=== PATIENT | female | born 1980 | race Caucasian/White ===

== ENCOUNTER 2019-09-12 20:50 | Emergency (ER) | payer OTHER, SELFPAY ==
--- NOTE | ~2019-09-12 | XR_ITS ---
EXAMINATION: XR chest port-a-cath/central EXAM DATE: 09/13/2019 06:06 INDICATION: Central line placement. TECHNIQUE: Portable AP frontal chest x-ray was obtained. Comparison is made to prior examination from 09/13/2019, earlier same date. FINDINGS: There is a new right-sided IJ central venous line. No evidence of postprocedure pneumothora x. No focal airspace disease or pleural effusion. Cardiomediastinal silhouette is normal. There are n o osseous abnormalities identified. There is no significant interval change. IMPRESSION: No postprocedure pneumothorax. Reviewed, dictated and finalized at location A.
--- NOTE | ~2019-09-12 | XR_ITS ---
EXAMINATION: XR chest 2V EXAM DATE: 09/13/2019 01:08 INDICATION: Fever cough and weakness. TECHNIQUE: Portable AP frontal chest x-ray was obtained. There is no prior study for comparison. FINDINGS: The lungs are clear. There are no pleural effusions. The cardiomediastinal silhouette is within normal limits. There is no pneumothorax suspected. The bones and soft tissues are unremarkab le. IMPRESSION: No acute cardiopulmonary findings. Reviewed, dictated and finalized at location A.
--- NOTE | ~2019-09-12 | CT_ITS ---
EXAMINATION: CT abdomen pelvis w con EXAM DATE: 09/13/2019 01:01 INDICATION: Nausea vomiting diarrhea, weakness. TECHNIQUE: Spiral CT of the abdomen and pelvis was performed following intravenous injection of 100 m L Omnipaque 350. Axial, coronal and sagittal images were reviewed. The dose-length product (DLP) fo r this examination was 182.74 mGy-cm. The exposure was tailored according to patient size (auto mA e xposure control), and iterative reconstruction (ASIR) was used as additional dose reduction technique . There is no prior study for comparison. FINDINGS: There are significantly enlarged retroperitoneal lymph nodes. For example one below the lef t renal vein measures 2.6 x 2.0 cm. These are relatively low, heterogeneous density. Differential amberly gnosis includes lymphoma, other malignancy, granulomatous process. There is severe periportal edema. Edema also involving the gallbladder wall which is collapsed. No c alcified cholelithiasis or pericholecystic fluid. Portal and splenic veins are patent. Kidneys enha nce symmetrically. There is no hydronephrosis. The uterus is anteverted and morphologically normal . The bladder is unremarkable. The appendix is normal. The stomach and small bowel are unremarkable. There is expected amount of c olonic stool. No free intraperitoneal gas. The heart is normal in size. There are no pericardial or pleural effusions. The lung bases are unremarkable. There are no osteoblastic or osteolytic les ions identified. IMPRESSION: 1. Significantly enlarged heterogeneously low density retroperitoneal lymph nodes; differential diag nosis including lymphoma, metastatic disease, granuloma this process. Clinical correlation, consider retroperitoneal lymph node biopsy. 2. Severe periportal edema also likely causing gallbladder wall edema. Reviewed, dictated and finalized at location A. IMPRESSION: 1. Significantly enlarged heterogeneously low density retroperitoneal lymph no yony; differential diagnosis including lymphoma, metastatic disease, granuloma t his process. Clinical correlation, consider retroperitoneal lymph node biopsy. 2. Severe periportal edema also likely causing gallbladder wall edema.
[2019-09-12 21:23] VITALS: BP 80/53; PULSE 117; RESP 18; TEMP 37.1; O2SAT 100
[2019-09-12 21:55] LABS: Hematocrit 26.1 % (37.0-47.0); Hemoglobin 8.7 g/dL (12.0-15.0); Mean Corpuscular HGB Conc 33.3 g/dl (32-36); Mean Corpuscular Volume 78.1 fl (80-100); Mean Platelet Volume 12.3 fl (7.4-10.4); Platelet Count Result 102 k/mm3 (150-375); Red Blood Count 3.34 M/mm3 (4.2-5.4)
[2019-09-12 22:05] LABS: White Blood Count 1.5 K/mm3 (4.5-10.0)
[2019-09-12 22:06] LABS: Alanine Aminotransferase 47 U/L (4-35); Albumin Level 2.9 g/dL (3.5-5.1); Alkaline Phosphatase 118 U/L (38-126); Aspartate Amino Transferase 86 U/L (14-36); Bilirubin,Total 0.6 mg/dL (0.2-1.3); Blood Urea Nitrogen 16 mg/dL (7-17); Calcium 8.3 mg/dL (8.4-10.2); Carbon Dioxide 25 mmol/L (22-30); Chloride 98 mmol/L (98-107); Estimated CRCL calculation 46 ml/min; Estimated Glomerular Filt Rate > 60; Glucose 110 mg/dL (65-105); Lipase 41 U/L (23-300); Sodium 130 mmol/L (137-145)
[2019-09-12 22:16] LABS: Total Cells Counted 25
[2019-09-12 22:17] LABS: Band Neutrophils Percent 8 % (0-6); Lymphocytes Absolute Manual 0.18 K/mm3 (1.1-4.5); Lymphocytes Percent Manual 12 % (18-44); Monocytes Absolute Manual 0.06 K/mm3 (0.1-0.90); Monocytes Percent Manual 4 % (3-9); Neutrophils Absolute Manual 1.26 K/mm3 (1.7-7.2); Neutrophils Percent Manual 76 % (46-73); Platelet Estimate Decreased (Adequate)
[2019-09-12 22:18] LABS: Ovalocytes 2+ (NORMAL); Poikilocytosis 2+ (NORMAL)
[2019-09-12 23:33] VITALS: BP 74/57; PULSE 88
[2019-09-12 23:36] VITALS: BP 77/55; BP 78/57; PULSE 100; PULSE 94
--- NOTE | 2019-09-12 23:41 | PC.NURSE ---
pt blood pressure 77/55. denies dizziness. states my blood pressure always runs really low. pt states emesis > [address] gonzalez notified. vrbo 1 L NS bolus x1. pt tolerated well. will continue to monitor
[2019-09-12 23:42] VITALS: BP 77/55; PULSE 85; RESP 20; O2SAT 96
[2019-09-12] MEDS: SODIUM CHLORIDE 0.9% IV 1,000 ML 1000 ML (23:50)
[2019-09-13] VITALS (64 sets, daily range): BP systolic 77–102; BP diastolic 44–82; PULSE 76–129; RESP 16–37; TEMP 36.8–39.5; O2SAT 88–100
--- NOTE | 2019-09-13 00:05 | ECG_ITS ---
Measurements Intervals [place] Rate: 94 P: 64 TN: 184 QRS: 43 QRSD: 93 T: 53 QT: 372 QTc: 466 Interpretive Statements SINUS RHYTHM BASELINE ARTIFACT- I, II, III, AVR, AVL, AVF, V1-V6 BORDERLINE ECG Electronically Signed On 09-13-2019 6:56:49 CDT by Casey Doran D.O.
--- NOTE | 2019-09-13 00:06 | ED.NAVMDI ---
HPI - Nausea/Vomiting/Diarrhea General Chief complaint: Nausea/Vomiting/Diarrhea Stated complaint: n/v, fever, cough Time Seen by Provider: 09/13/19 00:04 Source: patient Mode of arrival: ambulatory Limitations: no limitations History of Present Illness HPI Narrative: Patient is a 38-year-old female with a history of HIV who presents for evaluation of fever, nausea and vomiting. Patient reports she has been feeling unwell over the past 3 days since discharge from [facility]. When I question the patient why she was admitted to the hospital immediately she cannot really give me a clear diagnosis or answer. Patient reports cough, congestion, fever, chills, myalgias and vomiting. She denies abdominal pain. No current shortness of breath. Patient denies current IV drug use. She does follow with infectious disease at [facility]. Patient reports some intermittent diarrhea, none today. No passing out, patient states she feels weak and lightheaded. Related Data Allergies Allergy/AdvReac Type Severity Reaction Status Date / Time No Known Allergies Allergy Verified 09/12/19 23:31 Review of Systems Review of Systems: Narrative: CONSTITUTIONAL: Reports fever CARDIOVASCULAR: Denies chest pain RESPIRATORY: Reports cough without shortness of breath GASTROINTESTINAL: Denies abdominal pain, reports nausea and vomiting SKIN: Denies rash : Reports hematuria or dysuria MUSCULOSKELETAL: Denies back pain NEUROLOGIC: Denies headache, reports weakness PMFSH Past Medical History Medical History HIV (human immunodeficiency virus infection) Social History Social History (Updated 09/13/19 @ 00:23 by Valerie Sneed MD) Smoking status: Current every day smoker Tobacco type: cigarettes Alcohol intake: never Substance use: former Gender identity (if verbalized by the patient): Female Exam Narrative: Exam Narrative: GENERAL: Awake, alert, conversant, emaciated HEAD: Normocephalic, atraumatic. EYES: PERRLA and EOMI. ENT: Nares clear, no rhinorrhea or epistaxis. Mucous membranes dry NECK: Supple. CHEST: No respiratory distress, breathing even and non labored HEART: Tachycardic rate, sinus rhythm ABDOMEN: Scaphoid, non distended, non tender EXTREMITIES: Normal range of motion. No edema. SKIN: Warm, dry, no rash. NEURO:No focal deficits. Alert and oriented x3 Course Vital Signs Vital signs: Vital Signs Temperature 37.1 C 09/12/19 21:23 Pulse Rate 117 H 09/12/19 21:23 Respiratory Rate 18 09/12/19 21:23 Blood Pressure 80/53 L 09/12/19 21:23 Pulse Oximetry 100 09/12/19 21:23 Temperature 39.5 C H 09/13/19 04:42 Pulse Rate 123 H 09/13/19 04:42 Respiratory Rate 20 09/13/19 04:42 Blood Pressure 82/55 L 09/13/19 04:42 Pulse Oximetry 95 09/13/19 04:42 Transfer Transfered to: [facility]: ALS Transfer rationale: ICU bed available Accepting physician: Saurabh MAN Procedures Central Line Placement Right IJ: Central Line Date: 09/13/19 Central Line Time: 05:30 Discussed w/ the patient/family/POA,the placement of a central venous catheter, including its clinical necessity/indication & associated potential risks, benifits and alternatives.: Yes The patient/family/POA understand(s) and acknowledge(s) the need to proceed with central venous catheter insertion as an important element of the patient's clinical management.: Yes Time Out Performed: Yes Patient Placed on Monitor/Pulse Ox: Yes Max. Sterile Barrier Technique: Caps, large sterile sheet and hand hygiene Central Line Prep: 2% chlorhexidine scrub and sterile drapes applied Technique: US-Guided Local Anesthetic: lidocaine 1% Amount of anesthesia used (mL): 3 Ultrasound Used for Placement: Yes Central Line Lumen Inserted: triple Post Procedure: sutured in place, good blood re
[2019-09-13 00:33] LABS: CRP 4.3 mg/dL (<1.0); Prothrombin Time 12.8 Seconds (11.1-14.7)
[2019-09-13 00:34] LABS: Partial Thromboplastin Time 36.6 SECONDS (22.3-36.8)
[2019-09-13 00:41] LABS: Add Urine Microscopic? YES; Appearance Urine Clear (Clear); Bilirubin Urine Negative (Negative); Blood Urine Negative (Negative); Color Urine Yellow (Yellow); Glucose Urine UA Negative (Negative); Ketones Urine Negative (Negative); Leukocyte Esterase Ur Negative LEU/UL (Negative); Mucus Urine Rare /lpf; Nitrate Urine Negative (Negative); Protein Urine 2+ mg/dL (Negative); RBC Urine 0-2 /hpf (0-2); Specific Grav Ur 1.028 (1.001-1.035); Squamous Epithelial Cell Urine Moderate /hpf (Few); WBC Urine 0-3 /hpf
[2019-09-13 00:42] LABS: Troponin I < 0.012 ng/mL (0.000-0.034)
[2019-09-13 00:44] LABS: Lactic Acid Reflex 0.9 mmol/L (0.7-2.1)
[2019-09-13] MEDS: ONDANSETRON INJ 4 MG/2 ML VIAL IV PUSH (01:09)
[2019-09-13 03:46] LABS: NT Pro B Type Natriuretic Pept 229 PG/ML (5-100)
[2019-09-13] MEDS: METOCLOPRAMIDE HCL INJ 10 MG/2 ML VIAL IV PUSH (04:51)
--- NOTE | 2019-09-13 04:57 | PC.NURSE ---
Scott Correa @ [facility]., called and stated he has spoken with Matthew Martines, ST[facility], Dr. Wiley (Special Machine Operator) and ER physician. All indicated that they do not accept this patient.
--- NOTE | 2019-09-13 06:20 | PC.NURSE ---
BED RECEIVED FROM [facility] 9. REPORT TO BE CALLED TO [phone].
--- NOTE | 2019-09-13 06:25 | PC.NURSE ---
REPORT CALLED TO LASHAWN DOZIER AT [facility]. ALL QUESTIONS ANSWERED. NO FURTHER QUESTIONS.
--- NOTE | 2019-09-13 06:35 | PC.NURSE ---
CALLED [facility] TO TRANSPORT TO [facility]/ICU...ETA 60 MINUTES
[2019-09-13] MEDS: levoFLOXacin 500 MG/D5W 100 ML 500 MG/100 ML BAG 100 MG IVPB (06:39)
[2019-09-13] MEDS: NOREPINEPHRINE 8 MG/D5W 250 ML 8 MG/250 ML BAG 9.4 MG IV CONT (06:39)
[2019-09-13 06:48] LABS: Alveolar/Arterial O2 Gradient 44.4 mmHg; Base Excess ABG -3.4 mEq/l (+/-2.0); HCO3 ABG 19.9 mEq/l (22.0-26.0); PCO2 ABG 29.5 mmHg (35.0-45.0); pH ABG 7.447 (7.350-7.450)
[2019-09-13 06:49] LABS: Carboxyhemoglobin 0.5 % THb (0-2.0); Fractional Inspired Oxygen 21 %; Methemoglobin ABG 0.6 %THb (0-1.5); Modified Allen's Test Pass; Oxygen Content ABG 11.7 %vol (16.0-22.0); PO2 FiO2 Ratio Arterial Blood 3.33 %; Reduced Hemoglobin 6.9 %THb (0-5.0); Site Drawn RIGHT BRACHIAL
[2019-09-13 06:50] LABS: Device ROOM AIR
[2019-09-13 07:00] LABS: Estimated CRCL calculation 58 ml/min; Estimated Glomerular Filt Rate > 60
--- NOTE | 2019-09-13 07:50 | PC.NURSE ---
new eta for [facility] 30 min
--- NOTE | 2019-09-13 08:49 | PC.NURSE ---
CALL RECEIVED FROM [facility], ESTIMATED TIME TO TRANSFER IS 1 1/2 HOURS.
--- NOTE | 2019-09-13 09:48 | PC.NURSE ---
TO [facility] VIA [facility]. CONDITION STABLE.
[2019-09-15 03:18] LABS: SARS-CoV-2 RNA PCR Negative
[2019-09-16 12:31] LABS: Absolute CD4 Count 24 cells/uL (490-1740); Lymphocytes, Absolute 193 cells/uL (850-3900); Percent CD4 Cells 12 % (30-61)
== END 2019-09-13 09:58 | disposition short-term general hospital (02) ==
PROVIDERS: Emergency Provider Emergency Medicine; PCP Internal Medicine Infectious Disease
DX: A41.9 Sepsis, unspecified organism (principal); R65.21 Severe sepsis with septic shock; Z20.828 Contact with and (suspected) exposure to other viral communicable diseases; F17.210 Nicotine dependence, cigarettes, uncomplicated; Z21 Asymptomatic human immunodeficiency virus [HIV] infection status; E86.0 Dehydration; R94.31 Abnormal electrocardiogram [ECG] [EKG]
CPT/HCPCS: 36415; 36556; 36600; 71046; 74177; 80053; 81001; 81025; 82375; 82565; 82805; 83050; 83605; 83690; 83880; 84484; 85025; 85610; 85730; 86140; 86361; 87040; 87635; 93005; 96361; 96365; 96366; 96367; 96375; 99291; C1751; C9803; J0131; J1956; J2405; J2543; J2765; J3370; J7030; Q9967; U0003